=== PATIENT | female | born 1965 | race Caucasian/White ===

== ENCOUNTER 2018-03-10 07:05 | Day surgery (SDC) | payer BC ==
[~2018-03-10] VITALS: Ht 152.4 cm; Wt 52.2 kg
[2018-03-10] MEDS ORDERED: SIMETHICONE 40 MG/0.6 ML ML ONE (07:37)
[2018-03-10] MEDS: MIDAZOLAM HCL 5 MG/5 ML VIAL ONE ×5 (10:09→10:20)
[2018-03-10] MEDS: MEPERIDINE HCL/PF 100 MG/ML AMP ONE ×2 (10:09→10:16)
[2018-03-10 14:20] VITALS: BP_SYST 94
== END 2018-03-10 12:15 | disposition home or self-care (01) ==
LOC: SDS 07:05 → SMU 07:05 → SDS 12:15
PROVIDERS: ATTEND Internal Medicine Gastroenterology
DX: Z12.11 Encounter for screening for malignant neoplasm of colon (principal); K63.5 Polyp of colon; K57.30 Diverticulosis of large intestine without perforation or abscess without bleeding; K64.8 Other hemorrhoids; Z88.0 Allergy status to penicillin; Z90.710 Acquired absence of both cervix and uterus
CPT/HCPCS: 45380; 88305; J2175; J2250